=== PATIENT | male | born 1960 | race Hispanic/Latino ===

== ENCOUNTER 2023-07-08 06:03 | Day surgery (SDC) | payer OTHER ==
[~2023-07-08] VITALS: Ht 172.7 cm; Wt 123.4 kg
[2023-07-08] VITALS (10 sets, daily range): BP systolic 110–130; BP diastolic 62–84; PULSE 61–78; RESP 15–18
[~2023-07-08 06:03] MED LIST: SEMA2PEN SQ
[2023-07-08] MEDS: 0.9%NACL 1000ML 1,000 ML IV ONE (06:56)
[2023-07-08] MEDS ORDERED: PROPOFOL 10 MG/ML 20ML VIAL IV ONE (07:06)
[2023-07-08] MEDS ORDERED: GLYCOPYRROLATE 0.2 MG/ML 5 ML VIAL ONE (07:06)
[2023-07-08] MEDS ORDERED: LIDOCAINE HCL 400MG/20ML VIAL ONE (07:07)
== END 2023-07-08 08:24 | disposition home or self-care (01) ==
LOC: ENDO 06:03 → DAH 06:03 → ENDO 08:24
PROVIDERS: ATTEND Internal Medicine Gastroenterology
DX: D13.1 Benign neoplasm of stomach (principal); K29.50 Unspecified chronic gastritis without bleeding; K31.89 Other diseases of stomach and duodenum; K44.9 Diaphragmatic hernia without obstruction or gangrene; R19.7 Diarrhea, unspecified; I10 Essential (primary) hypertension; E11.9 Type 2 diabetes mellitus without complications; E78.2 Mixed hyperlipidemia; K57.30 Diverticulosis of large intestine without perforation or abscess without bleeding; Z79.84 Long term (current) use of oral hypoglycemic drugs; Z79.899 Other long term (current) drug therapy; Z88.6 Allergy status to analgesic agent; Z86.010 Personal history of colon polyps
CPT/HCPCS: 43259; 82948 ×2; 43239; J3490 ×2; J7030; J2704; A4620